=== PATIENT | female | born 1995 | race Two or more races ===

== ENCOUNTER 2022-09-01 13:04 | Inpatient (IN) | payer OTHER ==
[~2022-09-01] VITALS: Ht 162.6 cm; Wt 55.3 kg
[2022-09-01] MEDS ORDERED: PRENATAL TABLE1 EAC1 PO (14:04)
[2022-09-01] MEDS ORDERED: IRON18 MG PO (14:05)
== END 2022-09-03 13:23 | disposition home or self-care (01) | DRG 807 ==
LOC: LDR 13:04 → OB/GYN 13:04
PROVIDERS: ADMIT Obstetrics & Gynecology; ATTEND Obstetrics & Gynecology
PROC: 10E0XZZ Delivery of Products of Conception, External Approach (ICD-10-PCS; principal; 2022-09-01)
PROC: 4A1HXCZ Monitoring of Products of Conception, Cardiac Rate, External Approach (ICD-10-PCS; 2022-09-01)
DX: O80 Encounter for full-term uncomplicated delivery (principal); Z37.0 Single live birth; Z3A.37 37 weeks gestation of pregnancy; Z20.822 Contact with and (suspected) exposure to COVID-19